=== PATIENT | male | born 1980 | race Caucasian/White ===

== ENCOUNTER 2017-11-13 13:22 | Emergency (ER) | payer OTHER ==
[2017-11-13] MEDS ORDERED: NS 1,000 ML IV ONE (13:43)
[2017-11-13 14:02] LABS: PLATELET COUNT 271 10^3/uL (150-400)
--- NOTE | 2017-11-13 14:03 | EDPHY ---
HPI/HX/ROS/PE/MDM Narrative: CHIEF COMPLAINT: N/D, dehydration HPI: The patient is a 37 y/o male complaining of intermittent nausea and diarrhea for the last 3 weeks who feels dehydrated today. His symptoms appeared after using Advil for two weeks following a dental procedure. He has seen urgent care and a PCP for his symptoms and was advised to discontinue the Advil and start Prilosec, which he has been taking for the last 2 weeks. He denies any antibiotic use or other medications. His nausea and diarrhea seem to have increased in intensity today. He notes he is drinking a lot of water and urinating frequently, yet still feels dehydrated. He describes his diarrhea as urgent and denies any blood or abnormal color to his stools. No fever, vomiting , abdominal pain, dyspnea, chest pain, recent international travel. No history of abdominal surgeries. REVIEW OF SYSTEMS: A comprehensive 10 system review of systems is otherwise negative aside from elements mentioned in the history of present illness. PMH: Weekly testosterone injections; orthopedic surgeries SOCIAL HISTORY: Employed as software quality automation engineer. Lives in [place]. Single. PHYSICAL EXAM: General:Patient is alert, in no acute distress. ENT:Eyes are normal to inspection. ENT inspection normal. Neck: Normal inspection. Full range of motion. Respiratory:No respiratory distress. Breath sounds normal bilaterally. Cardiovascular: Regular rate and rhythm. Strong peripheral pulses. Normal cap refill. Abdomen:The abdomen is nontender to palpation. There are no peritoneal signs. Back: Normal to inspection. No tenderness to palpation. Skin: Normal color. No rash. Warm and dry. Extremities: Normal appearance. Full range of motion. Neuro: Oriented x3. Normal motor function. Normal sensory function. ED Course: This is a normally healthy 37 y/o male who presents with a 3-week history of intermittent nausea and diarrhea that worsened today. He currently feels dehydrated despite increased fluid intake and more frequent urination. His abdomen is benign and he is afebrile. Plan for IV, labs, GI pathogen panel. 1L IV NS ordered. Labs unremarkable. Patient will try to provide stool sample. Reassessed patient and discussed findings. He is feeling well and ready to go home. Advised following up with his PCP next week. Return precautions discussed. He is comfortable with plan for discharge. MDM: This patient presents with one month of intermittent abdominal symptoms. His abdomen is completely non-tender, his vitals are normal, he is afebrile and his WBC is normal. I discussed options with him and offered him CTAP, but he declines. We were able to obtain a stool sample and I have sent this to the lab. No empiric antibiotics are indicated at this point. Patient understands that the etiology of his symptoms is currently unknown. - Data Points Laboratory Results: Laboratory Results 11/13/17 13:45 11/13/17 13:45 11/13/17 11/13/17 13:45 13:45 WBC 6.69 10^3/uL 10^3/uL (3.80-9.50) RBC 5.93 10^6/uL 10^6/uL (4.40-6.38) Hgb 16.2 g/dL g/dL (13.7-17.5) Hct 49.1 % % (40.0-51.0) MCV 82.8 fL fL (81.5-99.8) MCH 27.3 pg L pg (27.9-34.1) MCHC 33.0 g/dL g/dL (32.4-36.7) RDW 12.8 % % (11.5-15.2) Plt Count 271 10^3/uL 10^3/uL (150-400) MPV 9.5 fL fL (8.7-11.7) Neut % (Auto) 76.1 % H % (39.3-74.2) Lymph % (Auto) 16.0 % % (15.0-45.0) [place] % (Auto) 6.6 % % (4.5-13.0) Eos % (Auto) 0.6 % % (0.6-7.6) Baso % (Auto) 0.6 % % (0.3-1.7) Nucleat RBC Rel Count 0.0 % % (0.0-0.2) Absolute Neuts (auto) 5.09 10^3/uL 10^3/uL (1.70-6.50) Absolute Lymphs (auto) 1.07 10^3/uL 10^3/uL (1.00-3.00) Absolute Monos (auto) 0.44 10^3/uL 10^3/uL (0.30-0.80) Absolute Eos (auto) 0.04 10^3/uL 10^3/uL (0.03-0.40) Absolute Basos (auto) 0.04 10^3/uL 10^3/uL (0.02-0.10) Absolute Nucleated RBC 0.00 10^3/uL 10^3/uL (0-0.01) Immature Gran % 0.1 % % (0.0-1.1) Immature Gran # 0.01 10^3/uL 10^3/uL (0.00-0.10) Sodium 141 mEq/L mEq/L (135-145) Potassium 4.2 mEq/L mEq/L (3.3-5.0) Chloride 101 mEq/L mEq/L (97-110) Carbon Dioxide 27 mEq/l mEq/l (22-31) Anion Gap 13 mEq/L mEq/L (8-16) BUN 8 mg/dL mg/dL (7-23) Creatinine 1.0 mg/dL mg/dL (0.7-1.3) Estimated GFR > 60 Glucose 100 mg/dL mg/dL (70-100) Calcium 9.7 mg/dL mg/dL (8.5-10.4) Total Bilirubin 0.4 mg/dL mg/dL (0.1-1.4) Conjugated Bilirubin 0.0 mg/dL mg/dL (0.0-0.5) Unconjugated Bilirubin 0.4 mg/dL mg/dL (0.0-1.1) AST 34 IU/L IU/L (17-59) ALT 37 IU/L IU/L (21-72) Alkaline Phosphatase 55 IU/L IU/L (38-126) Total Protein 7.7 g/dL g/dL (6.3-8.2) Albumin 4.7 g/dL g/dL (3.5-5.0) Lipase 66 IU/L IU/L (23-300) Medications Given: Discontinued Medications Sodium Chloride (Ns) 1,000 mls @ 0 mls/hr IV EDNOW ONE; Wide Open PRN Reason: Protocol Stop: 11/13/17 13:44 Last Admin: 11/13/17 13:46 Dose: 1,000 mls General Time Seen by Provider: 11/13/17 13:43 Initial Vital Signs: Initial Vital Signs Temperature (C) 37 C 11/13/17 13:33 Heart Rate 94 11/13/17 13:33 Respiratory Rate 16 11/13/17 13:33 Blood Pressure 157/102 H 11/13/17 13:33 O2 Sat (%) 97 11/13/17 13:33 O2 Delivery Mode Room Air Allergies/Adverse Reactions: No Known Allergies Allergy (Unverified 08/24/12 21:29) Home Medications: Medication Instructions Recorded None 08/24/12 Departure - Departure Disposition: Home, Routine, Self-Care Clinical Impression: Diarrhea, Nausea Condition: Good Instructions: Acute Diarrhea (ED) Additional Instructions: Follow up with your primary care provider on Thursday for reevaluation. Return to the ED for worsening of condition. Referrals: Quentin Devine DO [Doctor of Osteopathy] - As per Instructions Report Scribed for: Edy Mendoza Report Scribed by: Nu Merchant Date of Report: 11/13/17 Time of Report: 13:51 Physician Review and Approval Statement: Portions of this note were transcribed by an ED scribe. I personally performed the history, physical exam, and medical decision making; and confirm the accuracy of the information in the transcribed note.
[2017-11-13 15:44] VITALS: BP 144/93
== END 2017-11-13 15:43 | disposition home or self-care (01) ==
DX: R19.7 Diarrhea, unspecified (principal); R11.0 Nausea; E86.0 Dehydration